=== PATIENT | male | born 1960 | race Caucasian/White ===

== ENCOUNTER 2020-07-27 05:01 | Inpatient (IN) ==
--- NOTE | 2020-07-27 04:44 | ED Telehealth Note ---
Telehealth Telehealth Telehealth Options: 1-way audio and video For the duration of the visit, provider was performing the assessment from: A different facility than the patient After establishing a telemedicine visit, patient was: Patient was verified with two unique identifiers, Patient/authorized rep acknowledged consent and understanding and Gave permission to continue telehealth session Total Time Spent (minutes): 5 Impression & Plan Diarrhea Patient advised to come in as he was quite weak with little urine output and diarrhea for a week. Note/Exam/Outcome Date of Service July 27, 2020 ED Telehealth Outcome Referred to ED for in person visit General General: + awake, + alert and + tired ENT ENT: + normal nose Eyes Eyes: + conjunctivae normal Neck Neck: + visual inspection of neck normal Respiratory Respiratory: + normal respiratory effort Neuro Neuro: + normal sensorium, + oriented x 3 and + speech normal Psych Psych: + appropriate and + normal mood Past Med/Surg History Medical History HTN (hypertension) Occipital neuralgia Surgical History S/P appendectomy Family History Father Heart disease Social History Smoking Status: Current every day smoker Tobacco Type: Cigarettes Feels Safe at Home: Yes Allergies Allergies Allergy/AdvReac Type Severity Reaction Status Date / Time tramadol AdvReac Mild RAPID HEART Verified 12/24/13 06:51 Home Meds Home Medications Medication Instructions Recorded Confirmed lisinopril-hydrochlorothiazide 1 tab PO DAILY 07/21/20 07/21/20 omeprazole 20 mg PO DAILY 07/21/20 07/21/20 Previous Rx's Medication Instructions Recorded doxycycline hyclate 100 mg PO BID 7 Days #14 cap 07/21/20 Discharge Plan Visit Data Chief Complaint: Telehealth Stated Complaint: RECTAL PAIN ED Provider: ERASMO,ED ED Midlevel Provider: Linda Paz Discharge Problem: Diarrhea Condition: Good Discharge Instructions Activity Restrictions/Additional Instructions: Patient will come to the ER for further evaluation and treatment. Forms Stand Alone Forms: [facility] Prescriptions Prescriptions: No Action omeprazole 20 mg capsule,delayed release(DR/EC) 20 mg PO DAILY RF: 0 lisinopril-hydrochlorothiazide 10-12.5 mg tablet 1 tab PO DAILY RF: 0 doxycycline hyclate 100 mg capsule 100 mg PO BID 7 Days Qty: 14 RF: 0 Referrals Referrals: Joseph Ruiz MD [Primary Care Provider] -
[2020-07-27] MEDS ORDERED: SODIUM CHLORIDE 0.9% 1000ML 2,000 ML IV ONE (05:05)
--- NOTE | 2020-07-27 05:14 | Emergency Department Note ---
History of Present Illness General Chief complaint: Rectal Pain Stated complaint: RECTAL PAIN Time Seen by Provider: 07/27/20 04:32 History of Present Illness Maximum Pain Intensity: 1 This 60-year-old presents to the ER complaining of diarrhea and weakness for the past 5 days Location: Abdomen Quality: Crampy Severity: Moderate Duration: 5 days Timing: Started the beginning the week Context: Symptoms persisted and patient came in Modifying factors: better with nothing; worse with activity patient states he was exposed to possible contaminated water. Patient states he feels quite weak. Patient denies chest pain, dyspnea, fevers, vomiting, urinary symptoms. He does state his urine is quite dark. Rare alcohol use. Home Medications Medication Instructions Recorded Confirmed Type doxycycline hyclate 100 mg PO BID 7 Days #14 cap 07/21/20 Rx lisinopril-hydrochlorothiazide 1 tab PO DAILY 07/21/20 07/21/20 History omeprazole 20 mg PO DAILY 07/21/20 07/21/20 History Allergies Allergy/AdvReac Type Severity Reaction Status Date / Time tramadol AdvReac Mild RAPID HEART Verified 12/24/13 06:51 Past Med/Surg History Medical History HTN (hypertension) Occipital neuralgia Surgical History S/P appendectomy Family History Father Heart disease Social History Smoking Status: Never smoker Tobacco Type: Cigarettes Preferred Language: Korean Feels Safe at Home: Yes Review of Systems A total of 10 systems reviewed and were otherwise negative Physical Exam Vital Signs Vital Signs - 24 hr 07/27/20 05:04 07/27/20 05:33 07/27/20 05:34 Temperature 36.3 C L Temperature Source Temporal Artery Scan Pulse Rate 68 Pulse Rate [Finger] 63 Pulse Rhythm Regular Pulse Strength Normal Respiratory Rate 20 20 Respiratory Effort / Characteristics Non-Labored Spontaneous Respiratory Depth Normal Normal Respiratory Pattern Regular Blood Pressure 146/93 H Blood Pressure [Left Arm] 159/83 H Blood Pressure Mean 110 Blood Pressure Mean [Left Arm] 108 Blood Pressure Position Sitting Pulse Oximetry 97 96 96 Oxygen Delivery Method Room Air Room Air Room Air Sepsis Recent Fever Within 48 Hours No Sepsis New/Unexplained Change in Mental Status No Sepsis Action Taken by Nursing No Action Required VITALS: Vitals are noted on the nurse's note and reviewed by myself. Vital signs stable. GENERAL: White male, in no acute distress, nondiaphoretic, well-developed well- nourished. SKIN: The skin was without rashes, erythema, edema, or bruising. There is no tenting of the skin. Capillary reflex less than 2 seconds. HEAD: Normocephalic atraumatic. EARS: External auditory canals clear, tympanic membranes pearly flaherty without erythema or effusion bilaterally. EYES: Pupils equal round and reactive to light and accommodation. Conjunctivae without injection, sclerae with icterus. Extraocular movements intact. NOSE: Patent, turbinates without inflammation or discharge. No sinus tenderness. MOUTH: Mucous membranes dry. Pharynx without erythema or exudate. Uvula midline. Airway patent. Tongue does not deviate. NECK: Supple without nuchal rigidity. No lymphadenopathy. No thyromegaly. Cervical spine is nontender. No JVD. HEART: Regular rate and rhythm LUNGS: Clear to auscultation bilaterally without wheezes, rales or rhonchi. No retractions or accessory muscle use. ABDOMEN: Positive bowel sounds x 4. Normal tympanic percussion. Soft, non tender, without masses or organomegaly. Augustin sign negative. No guarding or rebound tenderness. No CVA tenderness MUSCULOSKELETAL: No muscle atrophy, erythema, or edema noted. NEURO: Patient was alert and oriented to person place and time. Normal sensation to light and sharp touch. No focal neurological deficits. Course Administered Medications Sodium Chloride (Nss 1000ml) 2,000 mls @ 999 mls/hr IV .Q2H1M ONE Stop: 07/27/20 07:05 Last Admin: 07/27/20 05:28 Dose: 999 mls/hr Documented by: [id number] Discontinued Medications Ondansetron HCl (Ondansetron Inj 2 Mg/Ml 2 Ml Vial) 4 mg IV NOW STA Stop: 07/27/20 05:16 Last Admin: 07/27/20 05:28 Dose: 4 mg Documented by: [id number] Medical Decision Making Medical Records Attestation: I reviewed the patient's medical records. Home Medications Current Medication List: was personally reviewed by me Laboratory Data Attestation: I reviewed the patient's lab results. Result diagrams: 07/27/20 05:13 07/27/20 05:13 Lab Results 07/27/20 07/27/20 07/27/20 Range/Units 05:13 05:13 05:25 WBC 6.98 (4.8-10.8) K/uL RBC 5.02 (4.7-6.1) M/uL Hgb 15.2 (14.0-18.0) g/dL POC Hgb 16.3 (14.0-18.0) g/dl Hct 44.4 (42-52) % POC Hct 48 (42-52) % MCV 88.4 (80-100) fL MCH 30.3 (25-34) pg MCHC 34.2 (32-36) g/dL RDW Std Deviation 49.7 H (36.4-46.3) fL RDW Coeff of Shaun 15.4 H (11.5-14.5) % Plt Count 234 (130-400) K/uL MPV 9.5 (7.4-10.4) fL Immature Gran % (Auto) 0.3 % Neut % (Auto) 58.2 % Lymph % (Auto) 23.8 % [place] % (Auto) 13.5 % Eos % (Auto) 3.6 % Baso % (Auto) 0.6 % Neut # (Auto) 4.07 (1.4-6.5) K/uL Lymph # (Auto) 1.66 (1.2-3.4) K/uL [place] # (Auto) 0.94 H (0.11-0.59) K/uL Eos # (Auto) 0.25 (0-0.5) K/uL Baso # (Auto) 0.04 (0-0.2) K/uL Immature Gran # (Auto) 0.02 (0.00-0.02) K/uL POC Sodium 141 (135-144) mmol/L Sodium 135 L (136-145) mmol/L POC Potassium 4.1 (3.3-5.0) mmol/L Potassium 4.3 (3.5-5.1) mmol/L POC Chloride 105 (101-112) mmol/L Chloride 105 (98-107) mmol/L Carbon Dioxide 23 (21-32) mmol/L POC Total CO2 20 L (24-31) mmol/L Anion Gap 7.0 (3-11) POC Anion Gap 21.0 (16-25) mmol/L POC BUN 13 (7-18) mg/dl BUN 13 (7-18) mg/dl Creatinine 0.83 (0.6-1.4) mg/dl POC Creatinine 0.8 (0.6-1.3) mg/dl Est Cr Clr Drug Dosing 105.0 ml/min Est GFR ( Amer) 110.8 ml/min Est GFR (Non-Af Amer) 95.6 ml/min BUN/Creatinine Ratio 15.6 (10-20) Glucose 111 H (70-99) mg/dl POC Glucose (other) 113 H (70-99) mg/dl Calcium 9.0 (8.5-10.1) mg/dl POC Ioniz Calcium Yair 1.22 (1.12-1.32) mmol/l Magnesium 1.8 (1.8-2.4) mg/dl Total Bilirubin 7.7 H (0.2-1) mg/dl AST 96 H (15-37) U/L ALT 194 H (12-78) U/L Alkaline Phosphatase 282 H (45-117) U/L Total Protein 7.8 (6.4-8.2) gm/dl Albumin 3.5 (3.4-5.0) gm/dl Globulin 4.3 H (2.5-4.0) gm/dl Albumin/Globulin Ratio 0.8 L (0.9-2) Imaging Data Attestation: I personally reviewed and interpreted this imaging study as follows: MDM Narrative Prior records/ancillary studies reviewed and summarized above. Nursing notes reviewed. Additional history obtained from nursing. The patient's history was concerning for diarrhea and weakness. Differential diagnosis: Etiologies such as metabolic, infection, hypo/hyperglycemia, electrolyte abnormalities, cardiac sources, intracerebral event, toxicologic, neurologic, as well as others were entertained. Physical examination: As above. ER treatment provided: IV Lock An order was placed for continuous cardiac monitoring. The monitor shows a rate of 60-1 10 with a sinus rhythm. IV fluids On reassessment the patient felt better. Diagnostics interpretation by me: ECG: Ordered for weakness EKG: Normal sinus, normal intervals, no acute ST-T wave changes. Impression normal sinus rhythm interpreted myself I think arrhythmia is unlikely. EKG shows normal sinus rhythm with no interval abnormalities such as QT prolongation or WPW. There are no findings to suggest Brugada syndrome. Cardiac monitoring in the emergency department reveals no tachycardic or bradycardic dysrhythmia. Hypertrophic cardiomyopathy was considered but there are no clear historical elements pointing toward this. EKG is not suggestive. The QRS voltage is not extremely large and there are no suggestive Q waves. The labs revealed stable H&H, stool cultures pending Elevated LFTs, T bili Stool cultures pending Imaging studies: Chest x-ray with no acute consolidation, pneumothorax or free air per my interpretation Consultation: A consultation was placed with the hospitalist. The case was discussed and diagnostics were reviewed. The patient was evaluated in the ER for further treatment. Exam and history seem consistent with diarrhea with weakness with elevated LFTs T bili who is jaundiced. Patient given IV fluids. Medicine was consulted. He will be evaluated for admission. Patient had no abdominal pain. He was afebrile nontoxic. By the evaluation outlined above emergent etiologies such as cardiac sources, intracerebral event, toxologic, neurologic, abnormalities blood glucose, metabolic, as well as others were deemed relatively unlikely. The pt informed about the findings as listed above. All questions were answered and pleased with the treatment. The chart was completed utilizing [employer] Speech voice recognition software. Grammatical errors, random word insertions, pronoun errors, and incomplete sentences are an occassional consequence of this system due to software limitations, ambient noise, and hardware issues. Any formal questions or concerns about the content, text, or information contained within the body of this dictation should be directly addressed to the physician corporate law assistant for clarification. Impression & Plan Diarrhea, Elevated bilirubin, Elevated liver function tests Discharge Plan Visit Data Chief Complaint: Rectal Pain Stated Complaint: RECTAL PAIN ED Provider: Alina Stovall ED Midlevel Provider: Linad Paz Discharge Problem: Diarrhea, Elevated bilirubin, Elevated liver function tests Patient Disposition: Admitted As Inpatient Condition: Good Discharge Instructions Activity Restrictions/Additional Instructions: Forms Stand Alone Forms: Work/School Release (ED), [facility] Prescriptions Prescriptions: No Action omeprazole 20 mg capsule,delayed release(DR/EC) 20 mg PO DAILY RF: 0 lisinopril-hydrochlorothiazide 10-12.5 mg tablet 1 tab PO DAILY RF: 0 doxycycline hyclate 100 mg capsule 100 mg PO BID 7 Days Qty: 14 RF: 0 Referrals Referrals: Joseph Ruiz MD [Primary Care Provider] - Discharge Problem: Diarrhea Qualifiers: Diarrhea type: unspecified type Qualified Code(s): R19.7 - Diarrhea, unspecified
[2020-07-27] MEDS ORDERED: ONDANSETRON INJ 2 MG/ML 2 ML VIAL IV STA (05:15)
[2020-07-27 05:26] LABS: Basophils # (auto) 0.04 K/uL (0-0.2); Basophils % (auto) 0.6 %; Eosinophils # (auto) 0.25 K/uL (0-0.5); Eosinophils % (auto) 3.6 %; Hematocrit (blood only) 44.4 % (42-52); Hemoglobin 15.2 g/dL (14.0-18.0); Immature Granulocytes # (auto) 0.02 K/uL (0.00-0.02); Immature Granulocytes % (auto) 0.3 %; Lymphocytes # (auto) 1.66 K/uL (1.2-3.4); Lymphocytes % (auto) 23.8 %; Mean Corpuscular Hemoglobin 30.3 pg (25-34); Mean Corpuscular Hgb Conc 34.2 g/dL (32-36); Mean Corpuscular Volume 88.4 fL (80-100); Mean Platelet Volume 9.5 fL (7.4-10.4); Monocytes # (auto) 0.94 K/uL (0.11-0.59); Monocytes % (auto) 13.5 %; Neutrophils # (auto) 4.07 K/uL (1.4-6.5); Neutrophils % (auto) 58.2 %; Platelet Count 234 K/uL (130-400); RDW Coefficient of Variation 15.4 % (11.5-14.5); RDW Standard Deviation 49.7 fL (36.4-46.3); Red Blood Count 5.02 M/uL (4.7-6.1); White Blood Count 6.98 K/uL (4.8-10.8)
[2020-07-27 05:38] LABS: iSTAT Creatinine 0.8 mg/dl (0.6-1.3); iSTAT Hemoglobin 16.3 g/dl (14.0-18.0); iSTAT Ionized Calcium 1.22 mmol/l (1.12-1.32); iSTAT Potassium 4.1 mmol/L (3.3-5.0)
[2020-07-27 06:04] LABS: Albumin Globulin Ratio 0.8 (0.9-2); Albumin Level 3.5 gm/dl (3.4-5.0); BUN Creatinine Ratio 15.6 (10-20); Bilirubin,Total 7.7 mg/dl (0.2-1); Est GFR (African American) 110.8 ml/min; Est GFR (Non-African American) 95.6 ml/min; Globulin 4.3 gm/dl (2.5-4.0); Magnesium 1.8 mg/dl (1.8-2.4); Potassium 4.3 mmol/L (3.5-5.1); Total Protein 7.8 gm/dl (6.4-8.2)
[2020-07-27 06:11] LABS: Appearance Urine Clear (Clear); Bacteria Urine Automated Negative (Negative); Bilirubin Urine 3+ (Negative); Blood Urine Negative (Negative); Cast Urine Automated 0 /lpf (0-5); Color Urine Dark Yellow; Epithelial Cell Urine Auto 0-5 /lpf (0-5); Glucose Urine UA Negative (Negative); Ketones Urine Negative (Negative); Leukocyte Esterase Urine Trace (Negative); Nitrite Urine Positive (Negative); Protein Urine Negative (Negative); RBC Urine Automated 0-4 /hpf (0-4); Specific Gravity Urine 1.017 (1.000-1.030); Urobilinogen Urine Negative (Negative); WBC Urine Automated 0 /hpf (0-5)
[2020-07-27] MEDS ORDERED: CEFEPIME 2,000 MG/20 ML VIAL IV STA (06:47)
--- NOTE | 2020-07-27 06:50 | History & Physical Report ---
Date of Service July 27, 2020 Assessment & Plan (1) Abdominal pain: Secondary to complicated UTI No sepsis for now Multifactorial hepatitis (EtOH induced, recent antibiotic Rx contributory) Rule out C. difficile colitis given diarrhea symptoms, history antibiotic Rx Rule out recurrent pancreatitis hypertension, slightly elevated secondary discomfort Incipient alcohol withdrawal prediabetes, hemoglobin A1c of 6 last year ongoing alcohol/tobacco abuse Medical telemetry given potential for alcohol withdrawal CS, Cefepime Stool C. difficile CT abdomen pelvis Follow LFTs, GI consult if with progression Further management pending work-up results DIANA S/DT precautions Update hemoglobin A1c Nicotine gum as needed DVT prophylaxis per Lovenox subcu Full code Text document was generated using [employer] voice recognition software. It may contain grammatical or spelling errors. Kindly contact undersigned for clarification of any documentation item in question. History of Present Illness Chief Complaint: Abdominal pain, dysuria, diarrhea Primary Care Provider: Joseph Ruiz MD History obtained from patient and records. Medical history significant for hypertension, prediabetes, history of pancreatitis as per records, ongoing alcohol/tobacco abuse. 2 weeks ago, patient complained to PCP of sinus infection. Symptoms improved after Augmentin course. Last week, patient noted chest pain with fever and headache. No no cough symptoms. Patient seen at the ER. No pulmonary embolism on CT chest. No LFTs/abdominal imaging done. Patient prescribed doxycycline for possible bronchitis. Patient felt worse 1 day after taking doxycycline. Achy abdominal pain with dark urine. Last alcohol intake at this time secondary to illness as per patient. Lyme screen requested by PCP was negative. Achy abdominal pain later followed by watery diarrhea and rectal pain. Fever, chills, dysuria symptoms. Consumption of maximum of 4 tabs of Tylenol 500 mg daily as per patient. Patient denies chest pain, S OB. Patient stopped Doxycycline. Patient consulted ER for worsening symptoms. Medical History as above Surgical History : Appendectomy Family History : Breast cancer, heart disease, hypertension Personal/Social history : 2 cigarettes a day, alcohol intake not daily but can be heavy from time to time, scheduling work for local [employer] Allergies Allergy/AdvReac Type Severity Reaction Status Date / Time tramadol AdvReac Mild RAPID HEART Verified 12/24/13 06:51 Home Medications Medication Instructions Recorded Confirmed Type doxycycline hyclate 100 mg PO BID 7 Days #14 cap 07/21/20 Rx lisinopril-hydrochlorothiazide 1 tab PO DAILY 07/21/20 07/21/20 History omeprazole 20 mg PO DAILY 07/21/20 07/21/20 History betamethasone dipropionate 1 applic TOPICAL BID PRN 07/27/20 07/27/20 History hydrocodone-acetaminophen 1.5 tab PO DAILY PRN 07/27/20 07/27/20 History Past Med/Surg History Medical History HTN (hypertension) Occipital neuralgia Surgical History S/P appendectomy Family History Father Heart disease Social History Smoking Status: Never smoker Tobacco Type: Cigarettes Preferred Language: Telugu Feels Safe at Home: Yes Review of Systems Review of Systems: As per HPI, all 10 systems reviewed, all other ROS negative Physical Exam Physical Exam: GENERAL: Comfortable, pleasant, obese, no respiratory distress SKIN: Normal color, warm HEENT: [place] palpebral conjunctivae, no ptosis, dry buccal mucosa NECK : Supple, short neck, no tenderness CHEST : CTA, no tenderness HEART : RRR, no obvious murmurs ABDOMEN: Some distention, hypogastric tenderness EXTREMITIES : No LE swelling/tenderness, no other conspicuous deformities noted NEUROLOGIC : Coherent, no facial asymmetry, no other gross focality Results & Data Results & Data ([facility]) Vital Signs (Past 12 Hours) Vital Signs Temp Pulse Pulse Resp BP BP Pulse Ox 07/27/20 06:00 60 18 150/90 H 98 07/27/20 05:34 63 20 159/83 H 96 07/27/20 05:33 96 07/27/20 05:04 36.3 C L 68 20 146/93 H 97 Laboratory Results Laboratory Results WBC 6.98 K/uL (4.8-10.8) 07/27/20 05:13 RBC 5.02 M/uL (4.7-6.1) 07/27/20 05:13 Hgb 15.2 g/dL (14.0-18.0) 07/27/20 05:13 POC Hgb 16.3 g/dl (14.0-18.0) 07/27/20 05:25 Hct 44.4 % (42-52) 07/27/20 05:13 POC Hct 48 % (42-52) 07/27/20 05:25 MCV 88.4 fL (80-100) 07/27/20 05:13 MCH 30.3 pg (25-34) 07/27/20 05:13 MCHC 34.2 g/dL (32-36) 07/27/20 05:13 RDW Std Deviation 49.7 fL (36.4-46.3) H 07/27/20 05:13 RDW Coeff of Shaun 15.4 % (11.5-14.5) H 07/27/20 05:13 Plt Count 234 K/uL (130-400) 07/27/20 05:13 MPV 9.5 fL (7.4-10.4) 07/27/20 05:13 Immature Gran % (Auto) 0.3 % 07/27/20 05:13 Neut % (Auto) 58.2 % 07/27/20 05:13 Lymph % (Auto) 23.8 % 07/27/20 05:13 [place] % (Auto) 13.5 % 07/27/20 05:13 Eos % (Auto) 3.6 % 07/27/20 05:13 Baso % (Auto) 0.6 % 07/27/20 05:13 Neut # (Auto) 4.07 K/uL (1.4-6.5) 07/27/20 05:13 Lymph # (Auto) 1.66 K/uL (1.2-3.4) 07/27/20 05:13 [place] # (Auto) 0.94 K/uL (0.11-0.59) H 07/27/20 05:13 Eos # (Auto) 0.25 K/uL (0-0.5) 07/27/20 05:13 Baso # (Auto) 0.04 K/uL (0-0.2) 07/27/20 05:13 Immature Gran # (Auto) 0.02 K/uL (0.00-0.02) 07/27/20 05:13 POC Sodium 141 mmol/L (135-144) 07/27/20 05:25 Sodium 135 mmol/L (136-145) L 07/27/20 05:13 POC Potassium 4.1 mmol/L (3.3-5.0) 07/27/20 05:25 Potassium 4.3 mmol/L (3.5-5.1) 07/27/20 05:13 POC Chloride 105 mmol/L (101-112) 07/27/20 05:25 Chloride 105 mmol/L (98-107) 07/27/20 05:13 Carbon Dioxide 23 mmol/L (21-32) 07/27/20 05:13 POC Total CO2 20 mmol/L (24-31) L 07/27/20 05:25 Anion Gap 7.0 (3-11) 07/27/20 05:13 POC Anion Gap 21.0 mmol/L (16-25) 07/27/20 05:25 POC BUN 13 mg/dl (7-18) 07/27/20 05:25 BUN 13 mg/dl (7-18) 07/27/20 05:13 Creatinine 0.83 mg/dl (0.6-1.4) 07/27/20 05:13 POC Creatinine 0.8 mg/dl (0.6-1.3) 07/27/20 05:25 Est Cr Clr Drug Dosing 105.0 ml/min 07/27/20 05:13 Est GFR ( Amer) 110.8 ml/min 07/27/20 05:13 Est GFR (Non-Af Amer) 95.6 ml/min 07/27/20 05:13 BUN/Creatinine Ratio 15.6 (10-20) 07/27/20 05:13 Glucose 111 mg/dl (70-99) H 07/27/20 05:13 POC Glucose (other) 113 mg/dl (70-99) H 07/27/20 05:25 Calcium 9.0 mg/dl (8.5-10.1) 07/27/20 05:13 POC Ioniz Calcium Yair 1.22 mmol/l (1.12-1.32) 07/27/20 05:25 Magnesium 1.8 mg/dl (1.8-2.4) 07/27/20 05:13 Total Bilirubin 7.7 mg/dl (0.2-1) H 07/27/20 05:13 AST 96 U/L (15-37) H 07/27/20 05:13 ALT 194 U/L (12-78) H 07/27/20 05:13 Alkaline Phosphatase 282 U/L (45-117) H 07/27/20 05:13 Total Protein 7.8 gm/dl (6.4-8.2) 07/27/20 05:13 Albumin 3.5 gm/dl (3.4-5.0) 07/27/20 05:13 Globulin 4.3 gm/dl (2.5-4.0) H 07/27/20 05:13 Albumin/Globulin Ratio 0.8 (0.9-2) L 07/27/20 05:13 Urine Color Dark Yellow 07/27/20 05:30 Urine Appearance Clear (Clear) 07/27/20 05:30 Urine pH 5.0 (4.5-7.5) 07/27/20 05:30 Ur Specific [place] 1.017 (1.000-1.030) 07/27/20 05:30 Urine Protein Negative (Negative) 07/27/20 05:30 Urine Glucose (UA) Negative (Negative) 07/27/20 05:30 Urine Ketones Negative (Negative) 07/27/20 05:30 Urine Blood Negative (Negative) 07/27/20 05:30 Urine Nitrite Positive (Negative) A 07/27/20 05:30 Urine Bilirubin 3+ (Negative) H 07/27/20 05:30 Urine Urobilinogen Negative (Negative) 07/27/20 05:30 Ur Leukocyte Esterase Trace (Negative) H 07/27/20 05:30 Urine WBC (Auto) 0 /hpf (0-5) 07/27/20 05:30 Urine RBC (Auto) 0-4 /hpf (0-4) 07/27/20 05:30 U Hyaline Cast (Auto) 0 /lpf (0-5) 07/27/20 05:30 U Epithel Cells (Auto) 0-5 /lpf (0-5) 07/27/20 05:30 Urine Bacteria (Auto) Negative (Negative) 07/27/20 05:30 Stl C. diff Tox B Gene Negative Cdiff Gene (Neg) 07/27/20 05:30 COVID-19 Eval Order Covid19 at [facility] 07/27/20 06:00 Diagnostic Findings Chest x-ray as per my interpretation atelectasis, cardiomegaly EKG as per my interpretation : Rate 65, NSR, normal axis, no ischemia
[2020-07-27] MEDS ORDERED: MULTI-VITAMIN INFUSION 10 ML, THIAMINE HCL 100 MG, FOLIC ACID 1 MG in SODIUM CHLORIDE 0... IV ONE (06:52)
[2020-07-27] MEDS ORDERED: OPTIRAY 320 100ml IV ONE (07:11)
[2020-07-27] MEDS ORDERED: lisinopril 20 MG TAB PO STA (07:31)
[2020-07-27 07:48] LABS: Estimated Average Glucose 117 mg/dl; Hemoglobin A1C 5.7 % (4.5-5.6)
[2020-07-27 07:56] LABS: INR 1.1 (0.9-1.1); Prothrombin Time 10.8 Seconds (9.0-12.0)
[2020-07-27 08:36] LABS: Lyme Ab IgG w/WB Rflx Negative (Negative); Lyme Ab IgM w/WB Rflx Negative (Negative)
[2020-07-27] MEDS ORDERED: LORazepam 2 MG/4 ML VIAL IV PRN (09:35)
[2020-07-27] MEDS ORDERED: PROMETHAZINE HCL 12.5 MG in SODIUM CHLORIDE 0.9% 50 ML IV PRN (09:35)
[2020-07-27] MEDS ORDERED: CEFEPIME CONSULT ACTIVE PRN (09:35)
[2020-07-27] MEDS ORDERED: LORazepam 3 MG/6 ML VIAL IV PRN (09:35)
[2020-07-27] MEDS ORDERED: LORazepam 1 MG/2 ML VIAL IV PRN (09:35)
[2020-07-27] MEDS ORDERED: oxyCODONE HCL IR 5 MG TAB (IMMEDIATE RELEASE) PO PRN (09:35)
[2020-07-27] MEDS ORDERED: ATIVAN IV ALCOHOL WITHDRAWL IV PRN (09:35)
[2020-07-27] MEDS ORDERED: ACETAMINOPHEN 325 MG TAB PO PRN (09:35)
[2020-07-27] MEDS ORDERED: MoRPHine SULFATE 4 MG/ML 1 ML CARP\\VIAL IV PRN (09:35)
--- NOTE | 2020-07-27 09:39 | CT Scan Report ---
CT abd pelvis IV con only CLINICAL HISTORY: abd pain COMPARISON STUDY: December 19, 2008 TECHNIQUE: A dose lowering technique was utilized adhering to the principles of ALARA. CT DOSE: 780.57 mGy.cm FINDINGS: Lower chest: Minimal atelectasis is seen at dependent portions of bilateral lower lobes. No large inf iltrates or consolidative lesions are seen.. Liver: The contrast-enhanced liver is normal in size, contour, and attenuation. There is no intrahepa tic biliary ductal dilatation. The hepatic veins and portal veins are patent. Gallbladder: Is contracted with calcifications within its distal aspect. No definite inflammatory mathew nges seen within gallbladder fossa. Spleen: Normal in size and attenuation. Pancreas: Unremarkable. Adrenal glands: Unremarkable. Kidneys: There is symmetric renal cortical enhancement. The kidneys are normal in size without hydron ephrosis.Interval enlargement of previously seen cyst within superior aspect of the left kidney now m easuring 4.3 cm on axial image. Pelvic viscera: The bladder, and pelvic viscera are unremarkable. Bowel: The small bowel and colon are normal in course and caliber. Appendix is not well seen. No infl ammatory changes are seen within right lower quadrant. Peritoneum: There is no intraperitoneal free air or abdominal ascites. There is mild fat stranding wi thin left hemiabdomen surrounding mesenteric root which might represent minimal panniculitis. Adenopathy:: Few small lymph nodes are seen in the retroperitoneal region, measuring less than 1 cm i n size and considered nonpathological by CT size criteria. No significant mesenteric lymphadenopathy seen. Slightly prominent lymph node measuring 1.2 cm in short axis is seen anteriorly to the inferior vena cava at the region of the pancreatic head, findings are not significantly changed since prior s tudy in 2008 Vasculature: Abdominal aorta is normal in caliber with scattered calcifications of its wall Skeletal structures: Multilevel degenerative changes of the spine. Grade 1 anterolisthesis of L5 on S 1 is seen associated with intervertebral disc space narrowing and subchondral sclerosis. Also spondyl olysis is seen at this level. Mild anterolisthesis of L4 on L5. IMPRESSION: 1. Mild fat stranding of the mesentery might represent panniculitis. 2. Cholelithiasis and contracted gallbladder, above-mentioned findings might be seen in chronic chol ecystitis. Please correlate with prior history. 3. Degenerative changes of the spine and grade 1 anterolisthesis of L5 on S1 associated with spondyl olysis. 4. Interval enlargement of left renal cyst. 5. Additional findings as above. ACT 112: Positive. There are findings on this exam that require communication between the performing entity and the patient following Patient Test Result Information Act ([place] Act 112) guidelines. The above report was generated using voice recognition software. It may contain grammatical, syntax o r spelling errors. Electronically signed by: Shoshana Mendez DO 07/27/2020 9:38 AM
--- NOTE | 2020-07-27 11:03 | Electrocardiogram Report ---
Test Reason : Blood Pressure : / mmHG Vent. Rate : 063 BPM Atrial Rate : 063 BPM P-R Int : 148 ms QRS Dur : 084 ms QT Int : 404 ms P-R-T Axes : 032 027 011 degrees QTc Int : 413 ms Normal sinus rhythm Normal ECG When compared with ECG of 21-JUL-2020 19:45, No significant change was found Confirmed by Fredy Lemons ([id number]) on 07/27/2020 11:03:27 AM Referred By: REFERRED SELF Confirmed By:Nigel Lemons
[2020-07-27] MEDS: PANTOprazole 40 MG TAB PO SCH (11:19)
[2020-07-27] MEDS: ENOXAPARIN INJ 40 MG/0.4 ML SYR SQ SCH (11:19)
--- NOTE | 2020-07-27 12:06 | Communication Note ---
Date of Service: July 27, 2020 Overall patient reports he is doing okay. Currently having clear liquid diet. Has been having diarrhea for the past week or so since he has been on doxycyc line. Report he has been having roughly 15 bowel movements per day. Denies any melena or bright red blood per rectum. C. difficile is negative. Stool panel is pending. Urine cultures were obtained in the ED. CT abdomen/pelvis without any acute findings. Continue with maintenance IV fluids for now. Remains on cefepime? Possible UTI? Patient denies any urinary symptoms. General: A&Ox3 HENT: NCAT, MMM, EOMI Eyes: PERRLA Neck: Supple, normal range of motion CVS: normal rate and rhythm Resp: b/l good breath sounds Abdomen: Soft, distended and nontender. Extremities: No c/c/e Neuro: face symmetric, strength grossly equal, no focal deficit Skin: warm and dry, no rashes/lesions/errythema MSK: normal ROM, no joint swelling/erythema
--- NOTE | 2020-07-27 12:26 | XRay Report ---
XR chest 1V portable CLINICAL HISTORY: weakness COMPARISON STUDY: Chest radiograph and chest CT July 21, 2020. FINDINGS: Lung volumes are normal. Lungs are clear. There is no pneumothorax or pleural effusion. Car diac size is stable. Mediastinal contours are normal. There is no evidence for pulmonary edema. IMPRESSION: No acute cardiopulmonary findings. ACT 112: Negative or not required by law. Electronically signed by: Mook Henderson M.D. 07/27/2020 12:24 PM
[2020-07-27] MEDS: CEFEPIME 2,000 MG in SYRINGE 0 ML IV SCH (18:17)
[2020-07-28] MEDS ORDERED: diphenhydrAMINE Capsule 25 MG CAP PO ONE (01:16)
[2020-07-28 05:52] LABS: Basophils # (auto) 0.04 K/uL (0-0.2); Basophils % (auto) 0.6 %; Eosinophils % (auto) 4.7 %; Hematocrit (blood only) 39.4 % (42-52); Hemoglobin 13.1 g/dL (14.0-18.0); Immature Granulocytes # (auto) 0.03 K/uL (0.00-0.02); Immature Granulocytes % (auto) 0.5 %; Lymphocytes # (auto) 1.51 K/uL (1.2-3.4); Lymphocytes % (auto) 23.9 %; Mean Corpuscular Hemoglobin 29.8 pg (25-34); Mean Corpuscular Hgb Conc 33.2 g/dL (32-36); Mean Corpuscular Volume 89.5 fL (80-100); Mean Platelet Volume 9.8 fL (7.4-10.4); Monocytes # (auto) 0.63 K/uL (0.11-0.59); Neutrophils # (auto) 3.82 K/uL (1.4-6.5); Neutrophils % (auto) 60.3 %; Platelet Count 226 K/uL (130-400); RDW Coefficient of Variation 15.6 % (11.5-14.5); RDW Standard Deviation 51.1 fL (36.4-46.3); White Blood Count 6.33 K/uL (4.8-10.8)
[2020-07-28] MEDS: CEFEPIME 2,000 MG in SYRINGE 0 ML IV SCH ×2 (06:10→18:26)
[2020-07-28 06:26] LABS: Albumin Globulin Ratio 0.9 (0.9-2); Albumin Level 2.9 gm/dl (3.4-5.0); BUN Creatinine Ratio 8.3 (10-20); Bilirubin,Total 10.1 mg/dl (0.2-1); Calcium 8.7 mg/dl (8.5-10.1); Creatinine Clr Calc Pharmacy 92.7 ml/min; Est GFR (African American) 95.5 ml/min; Est GFR (Non-African American) 82.4 ml/min; Globulin 3.4 gm/dl (2.5-4.0); Potassium 3.8 mmol/L (3.5-5.1); Total Protein 6.3 gm/dl (6.4-8.2)
[2020-07-28] MEDS: ENOXAPARIN INJ 40 MG/0.4 ML SYR SQ SCH (08:30)
[2020-07-28] MEDS: PANTOprazole 40 MG TAB PO SCH (08:31)
[2020-07-28] MEDS: FOLIC ACID 1 MG TAB PO SCH (08:31)
[2020-07-28] MEDS: lisinopril 10 MG TAB PO SCH (08:31)
[2020-07-28] MEDS: THIAMINE HCL 100 MG TAB PO SCH (08:31)
[2020-07-28] MEDS: MULTIVITAMIN TAB PO SCH (08:31)
--- NOTE | 2020-07-28 18:56 | Hospitalist Progress Note ---
Date of Service July 28, 2020 Assessment & Plan (1) Diarrhea: Present on admission with recurrent episode of diarrhea Possible related to antibiotic doxycycline CT abd/pelvis mild fat stranding of the mesentery might represent panniculitis.Cholelithiasis and contracted gallbladder, above-mentioned findings might be seen in chronic cholecystitis. Stool for Cdiff and parasite are negative Elevated liver enzyme that trending down Diarrhea improved significantly Diet advance as tolerated Transaminitis Elevated Liver enzymes trending down with AST 84, ALT 154 and Alk 263 Lyme titer negative Will repeat Liver enzymes Abnormal UA Urine cx no growth Asymptomatic Will discontinue IV abx Tobacco abuse Counseling on smoking cessation Alcohol abuse Counseling on alcohol cessation Will monitor closely for alcohol cessation DVT px on Lovenox Code status Ful code Admission and Anticipated Discharge Date Admission Date: July 27, 2020 Subjective Patient was seen and examined for follow-up of diarrhea and Liver enzymes Lying in bed no distress with girlfriend at bedside Patient said that he feels much better He said that he is not having any diarrhea at this moment. He said his last bowel movement was last night Denies any chest pain, palpitation, dizziness, shortness of breath. Review of Systems Review of Systems: All systems reviewed & are unremarkable except as noted in Subjective Physical Exam Physical Exam: General- No acute distress Head- atraumatic Eyes- PERRL, EOMI, ENT- oropharynx clear Neck- supple, no JVD Lungs- clear to auscultation Heart- regular rhythm; no murmur Abdomen- normal bowel sounds, soft, nontender Extremities- no calf tenderness Neuro- alert, oriented x 3; PERRL, EOMI; no facial palsy; no dysarthria Skin- warm & dry Results & Data Results & Data ([facility]) Vital Signs (Past 12 Hours) Vital Signs Temp Pulse Pulse Pulse Resp BP BP 07/28/20 16:00 36.8 C 65 18 148/81 H 07/28/20 12:00 36.8 C 60 18 119/59 L 07/28/20 09:00 59 L 07/28/20 07:30 36.7 C 59 L 18 142/77 H Pulse Ox 07/28/20 16:00 97 07/28/20 12:00 98 07/28/20 09:00 07/28/20 07:30 96 (1) Diarrhea Diarrhea type: unspecified type Qualified Code(s): R19.7 - Diarrhea, unspecified
[2020-07-28] MEDS: ACETAMINOPHEN 325 MG TAB PO PRN (19:42)
[2020-07-28] MEDS: ZOLPIDEM TARTRATE 5 MG TAB PO PRN (21:11)
[2020-07-28] MEDS ORDERED: LORATADINE 10 MG TAB PO ONE (23:31)
[2020-07-29 06:59] LABS: Hematocrit (blood only) 39.6 % (42-52); Hemoglobin 13.6 g/dL (14.0-18.0); Mean Corpuscular Hemoglobin 30.5 pg (25-34); Mean Corpuscular Hgb Conc 34.3 g/dL (32-36); Mean Corpuscular Volume 88.8 fL (80-100); Mean Platelet Volume 9.9 fL (7.4-10.4); Platelet Count 265 K/uL (130-400); RDW Coefficient of Variation 15.7 % (11.5-14.5); RDW Standard Deviation 50.8 fL (36.4-46.3); Red Blood Count 4.46 M/uL (4.7-6.1); White Blood Count 6.75 K/uL (4.8-10.8)
[2020-07-29 07:32] LABS: Albumin Globulin Ratio 0.7 (0.9-2); Albumin Level 2.9 gm/dl (3.4-5.0); BUN Creatinine Ratio 13.2 (10-20); Bilirubin,Total 12.3 mg/dl (0.2-1); Creatinine Clr Calc Pharmacy 98.1 ml/min; Est GFR (African American) 104.4 ml/min; Est GFR (Non-African American) 90.1 ml/min; Globulin 3.9 gm/dl (2.5-4.0); Potassium 3.7 mmol/L (3.5-5.1); Total Protein 6.8 gm/dl (6.4-8.2)
[2020-07-29] MEDS: THIAMINE HCL 100 MG TAB PO SCH (08:00)
[2020-07-29] MEDS: lisinopril 10 MG TAB PO SCH (08:00)
[2020-07-29] MEDS: FOLIC ACID 1 MG TAB PO SCH (08:00)
[2020-07-29] MEDS: PANTOprazole 40 MG TAB PO SCH (08:01)
[2020-07-29] MEDS: ENOXAPARIN INJ 40 MG/0.4 ML SYR SQ SCH (08:01)
[2020-07-29] MEDS: MULTIVITAMIN TAB PO SCH (08:01)
[2020-07-29 10:54] LABS: INR 1.1 (0.9-1.1); Prothrombin Time 10.8 Seconds (9.0-12.0)
--- NOTE | 2020-07-29 11:32 | Gastrointestinal Consultation ---
Date of Consultation July 29, 2020 Assessment & Plan (1) Abdominal pain: 60 year old male admitted w/ diarrhea/weakness noted to have transaminitis. DDX discussed: DILI vs obstructive process vs other Arrange MRCP After, no contraindication to diet Add Augmentin to allergy list for now concern for DILI Trend LFTs Diarrhea resolve but if returns consider questran daily given negative stool testing Trend LFTs Supervising Physician Co-Signing Physician Notes Attg add: I interviewed and examined pt, reviewed chart and labs. Pt s/p recent course of Augmentin now with cholestasis. CT with gstones but no choledo cholithiasis. Plan to follow labs - if cont rise, pursue serologic w/u for AIH, etc; empiric NAC; and consider EUS/liver bx. History of Present Illness Reason for Consultation: elevated LFTs Requesting Physician: Elena Attending Physician: Juan Manuel Parker MD History of Present Illness 60 year old male admitted w/ weakness, diarrhea and elevated LFTS - GI asked to evaluate for elevated LFTs. Notes he was in his typical state of health. Started PO Augmentin 10 days for URI. He notes he finished this course and after he developed vague symptoms, fatigue, dark urine and loose stools. Suggests he had been in and out of appointments and was later started on doxycycline with concern for lyme. He had worsening diarrhea which initially prompted ED evlauation. It was noted he had elevated transaminases and he was kep for observation. Clinically, feeling well. No abd pain. No nausea, vomiting. No GERD. He has had improvement of his bowels in the last 48 hours and notes resolution of loose stools. No black or bloody stools. TB uptrending to 12.3 AST stable 85 ALT stable 151 ALKP uptrending 299 + ETOH 1 bottle of wine 10 days ago + Tylenol 4 tabs daily x 2 weeks + Augmentin use 10 day course, finished 10 days ago CTAP 2020: Mild fat stranding of the mesentery might represent panniculitis. 2. Cholelithiasis and contracted gallbladder, above-mentioned findings might be seen in chronic cholecystitis. Please correlate with prior history. 3. 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 4. Interval enlargement of left renal cyst. 5. Additional findings as above. Allergies Allergy/AdvReac Type Severity Reaction Status Date / Time tramadol AdvReac Mild RAPID HEART Verified 12/24/13 06:51 Home Medications Medication Instructions Recorded Confirmed Type doxycycline hyclate 100 mg PO BID 7 Days #14 cap 07/21/20 07/27/20 Rx lisinopril-hydrochlorothiazide 0.5 tab PO DAILY 07/21/20 07/27/20 History omeprazole 20 mg PO DAILY 07/21/20 07/27/20 History betamethasone dipropionate 1 applic TOPICAL BID PRN 07/27/20 07/27/20 History hydrocodone-acetaminophen 1.5 tab PO DAILY PRN 07/27/20 07/27/20 History Patient History Medical History HTN (hypertension) Occipital neuralgia Surgical History S/P appendectomy Family History Father Heart disease Social History Smoking Status: Former smoker Tobacco Type: Cigarettes Cigarettes Per Day: pack; Second Hand Exposure: No; Do You Dip or Chew Tobacco: No; Tobacco Cessation Education Requested by Patient: No Hx Alcohol Use: Yes Alcohol type: beer Hx Substance Use: No Preferred Language: Armenian Communication Ability: Effective Sr. Operations Manager Required: No Beliefs That Will Affect Care: None marital status: Life Partner Current Living Situation: Family and Significant Other Other Information That Helps Us Care for You: No Feels Safe at Home: Yes Safety Concerns: Feels Safe At This Time Assistive Devices: None Review of Systems Review of Systems: All systems reviewed & are unremarkable except as noted in HPI & below Physical Exam Constitutional: WD/WN, vitals as above well developed and well nourished; no acute distress Eyes: PERRL +icterus Neck: trachea midline, no thyromegaly no tracheal deviation and no neck crepitus Respiratory: normal respiratory effort, lungs clear to auscultation Cardiovascular: RRR, no murmur, no edema Gastrointestinal (Abdomen): normal bowel sounds, soft, nontender, no hepatosplenomegaly Skin: no rashes, warm and dry + jaundice Results & Data ([facility]) Vital Signs (Past 12 Hours) Vital Signs Temp Pulse Pulse Pulse Resp BP Pulse Ox 07/29/20 11:02 36.7 C 62 18 150/90 H 94 07/29/20 07:44 59 L 07/29/20 06:57 36.7 C 63 18 138/84 95 07/29/20 03:16 36.6 C 58 L 16 105/63 96 07/29/20 00:56 60 Laboratory Results 07/29/20 07/29/20 07/29/20 Range/Units 10:33 06:11 06:11 WBC (4.8-10.8) K/uL RBC (4.7-6.1) M/uL Hgb (14.0-18.0) g/dL Hct (42-52) % MCV (80-100) fL MCH (25-34) pg MCHC (32-36) g/dL RDW Std Deviation (36.4-46.3) fL RDW Coeff of Shaun (11.5-14.5) % Plt Count (130-400) K/uL MPV (7.4-10.4) fL PT 10.8 (9.0-12.0) Seconds INR 1.1 (0.9-1.1) Sodium 136 (136-145) mmol/L Potassium 3.7 (3.5-5.1) mmol/L Chloride 105 (98-107) mmol/L Carbon Dioxide 25 (21-32) mmol/L Anion Gap 6.0 (3-11) BUN 12 (7-18) mg/dl Creatinine 0.92 (0.6-1.4) mg/dl Est Cr Clr Drug Dosing 98.1 ml/min Est GFR ( Amer) 104.4 ml/min Est GFR (Non-Af Amer) 90.1 ml/min BUN/Creatinine Ratio 13.2 (10-20) Glucose 107 H (70-99) mg/dl Calcium 9.0 (8.5-10.1) mg/dl Total Bilirubin 12.3 H (0.2-1) mg/dl AST 85 H (15-37) U/L ALT 151 H (12-78) U/L Alkaline Phosphatase 299 H (45-117) U/L Total Protein 6.8 (6.4-8.2) gm/dl Albumin 2.9 L (3.4-5.0) gm/dl Globulin 3.9 (2.5-4.0) gm/dl Albumin/Globulin Ratio 0.7 L (0.9-2) Lipase 74 (73-393) U/L 07/29/20 Range/Units 06:11 WBC 6.75 (4.8-10.8) K/uL RBC 4.46 L (4.7-6.1) M/uL Hgb 13.6 L (14.0-18.0) g/dL Hct 39.6 L (42-52) % MCV 88.8 (80-100) fL MCH 30.5 (25-34) pg MCHC 34.3 (32-36) g/dL RDW Std Deviation 50.8 H (36.4-46.3) fL RDW Coeff of Shaun 15.7 H (11.5-14.5) % Plt Count 265 (130-400) K/uL MPV 9.9 (7.4-10.4) fL PT (9.0-12.0) Seconds INR (0.9-1.1) Sodium (136-145) mmol/L Potassium (3.5-5.1) mmol/L Chloride (98-107) mmol/L Carbon Dioxide (21-32) mmol/L Anion Gap (3-11) BUN (7-18) mg/dl Creatinine (0.6-1.4) mg/dl Est Cr Clr Drug Dosing ml/min Est GFR ( Amer) ml/min Est GFR (Non-Af Amer) ml/min BUN/Creatinine Ratio (10-20) Glucose (70-99) mg/dl Calcium (8.5-10.1) mg/dl Total Bilirubin (0.2-1) mg/dl AST (15-37) U/L ALT (12-78) U/L Alkaline Phosphatase (45-117) U/L Total Protein (6.4-8.2) gm/dl Albumin (3.4-5.0) gm/dl Globulin (2.5-4.0) gm/dl Albumin/Globulin Ratio (0.9-2) Lipase (73-393) U/L
--- NOTE | 2020-07-29 14:49 | Magnetic Resonance Report ---
MRCP CLINICAL HISTORY: Elevated hepatic transaminases. COMPARISON STUDY: Abdominal CT dated 07/27/2020. TECHNIQUE: Abdominal MRCP is performed utilizing various T2-weighted sequences in the axial and coron al planes. 3-D reformats are created and assessed. IV contrast was not administered for this examinat ion. FINDINGS: The gallbladder is contracted and not well evaluated. No definite gallstones are identified. Calcific ations in the fundal region seen by CT are not apparent by MRI. There is no intra or extrahepatic jagdeep iary ductal dilatation. The common bile duct measures up to 3 mm in diameter. There are no intralumin al filling defects to suggest choledocholithiasis. Pancreas divisum is incidentally noted. The pancre atic duct is normal in caliber. The unenhanced liver, spleen, adrenal glands, and pancreas are grossly normal. The kidneys are normal in size and without hydronephrosis. A 5 cm left upper pole renal cyst is unchanged. Additional subce ntimeter renal cysts are noted. There is no abdominal ascites. The abdominal aorta is normal in calib er. Prominent upper abdominal nodes are similar to previous. A portacaval node measures up to 14 mm i n short axis. The bony structures appear intact as visualized. There is no pleural effusion. The hear t is enlarged and without pericardial effusion. IMPRESSION: 1. The gallbladder is contracted and not well assessed. No definite gallstones are identified. 2. Pancreas divisum is incidentally noted. 3. Otherwise normal MRCP. Dictated: 07/29/2020 2:05 PM Transcribed: 07/29/2020 2:25 PM Sima [id number] Electronically signed by: Narinder Stiles M.D. 07/29/2020 2:48 PM
--- NOTE | 2020-07-29 17:46 | Hospitalist Progress Note ---
Date of Service July 29, 2020 Assessment & Plan (1) Diarrhea: Present on admission with recurrent episode of diarrhea Possible related to antibiotic doxycycline CT abd/pelvis mild fat stranding of the mesentery might represent panniculitis.Cholelithiasis and contracted gallbladder, above-mentioned findings might be seen in chronic cholecystitis. Stool for Cdiff and parasite are negative Elevated liver enzyme that trending down Diarrhea improved significantly Diet advance as tolerated Resolved Transaminitis Elevated Liver enzymes trending down with AST 85, ALT 151 and Alk 299 Lyme titer negative MRCP showed no acute finding. Continue monior Liver enzymes Abnormal UA Urine cx no growth Asymptomatic Abx discontinued Tobacco abuse Counseling on smoking cessation Alcohol abuse Counseling on alcohol cessation Will monitor closely for alcohol cessation DVT px on Lovenox Code status Ful code Admission and Anticipated Discharge Date Admission Date: July 27, 2020 Subjective Patient was seen and examined for follow-up of diarrhea and Liver enzymes Lying in bed no distress with girlfriend at bedside Patient said that he fell better today He said that his stool today was greenish Denies any chest pain, palpitation, dizziness, shortness of breath. Review of Systems Review of Systems: All systems reviewed & are unremarkable except as noted in Subjective Physical Exam Physical Exam: General- No acute distress Head- atraumatic Eyes- PERRL, EOMI, ENT- oropharynx clear Neck- supple, no JVD Lungs- clear to auscultation Heart- regular rhythm; no murmur Abdomen- normal bowel sounds, soft, nontender Extremities- no calf tenderness Neuro- alert, oriented x 3; PERRL, EOMI; no facial palsy; no dysarthria Skin- warm & dry Results & Data Results & Data ([facility]) Vital Signs (Past 12 Hours) Vital Signs Temp Pulse Pulse Pulse Resp BP Pulse Ox 07/29/20 15:06 73 07/29/20 15:02 36.4 C L 70 18 147/84 H 97 07/29/20 11:02 36.7 C 62 18 150/90 H 94 07/29/20 07:44 59 L 07/29/20 06:57 36.7 C 63 18 138/84 95 (1) Diarrhea Diarrhea type: unspecified type Qualified Code(s): R19.7 - Diarrhea, unspecified
[2020-07-29] MEDS: ACETAMINOPHEN 325 MG TAB PO PRN (20:21)
[2020-07-29] MEDS ORDERED: diphenhydrAMINE Capsule 25 MG CAP PO PRN (20:25)
[2020-07-29] MEDS: ZOLPIDEM TARTRATE 5 MG TAB PO PRN (22:20)
[2020-07-30] MEDS: ACETAMINOPHEN 325 MG TAB PO PRN (06:19)
[2020-07-30 08:03] LABS: Albumin Globulin Ratio 0.7 (0.9-2); Albumin Level 3.2 gm/dl (3.4-5.0); BUN Creatinine Ratio 16.1 (10-20); Bilirubin,Total 13.4 mg/dl (0.2-1); Calcium 9.3 mg/dl (8.5-10.1); Creatinine Clr Calc Pharmacy 91.5 ml/min; Est GFR (African American) 96.7 ml/min; Est GFR (Non-African American) 83.5 ml/min; Globulin 4.4 gm/dl (2.5-4.0); Potassium 3.9 mmol/L (3.5-5.1); Total Protein 7.6 gm/dl (6.4-8.2)
[2020-07-30] MEDS: THIAMINE HCL 100 MG TAB PO SCH (08:15)
[2020-07-30] MEDS: FOLIC ACID 1 MG TAB PO SCH (08:15)
[2020-07-30] MEDS: lisinopril 10 MG TAB PO SCH (08:15)
[2020-07-30] MEDS: MULTIVITAMIN TAB PO SCH (08:16)
[2020-07-30] MEDS: ENOXAPARIN INJ 40 MG/0.4 ML SYR SQ SCH (08:16)
[2020-07-30] MEDS: PANTOprazole 40 MG TAB PO SCH (08:16)
--- NOTE | 2020-07-30 09:34 | Gastroenterology Progress Note ---
Date of Service July 30, 2020 Assessment & Plan (1) Elevated bilirubin: 60 year old male w/ cholestasis, CT and MR reviewed without choledocholithiasis, recent course of PO Augmentin, concern for DILI No GI contraindication to diet No GI contraindication to discharge OP [facility] labs Wednesday Labs twice a week Appt with Dr. Fox within two weeks Consider EUS/liver pending LFTs trend Thank you for allowing us to participate in the care of this patient. Please call with any acute changes, questions or concerns. Please see addendum below with additional recommendation from my supervising physician. Admission and Anticipated Discharge Date Admission Date: July 27, 2020 Supervising Physician Co-Signing Physician Notes attg addL I interviewed and examined pt, reviewed chat and labs. Pt reports two loose bowel movements but is otherwise feeling well. On exam, heis jaundiced, but comfrotable. Abd NT. No tremor. Labs show mildly rising AP and Bili. Presumed Augmentin induced cholestatic liver injury.Cont follow LFT's as outpt as outlined above. Subjective Offer no complaints Denies abd pain No nausea, vomiting No GERD. MRCP: No definite gallstones are identified. There is no intra or extrahepatic biliary ductal dilatation. The common bile duct measures up to 3 mm in diameter. There are no intraluminal filling defects to suggest choledocholithiasis. Pancreas divisum is incidentally noted. The pancreatic duct is normal in caliber. Review of Systems Review of Systems: All systems reviewed & are unremarkable except as noted in HPI & below Physical Exam Constitutional: WD/WN, vitals as above no acute distress and not ill appearing Neck: trachea midline, no thyromegaly Respiratory: normal respiratory effort, lungs clear to auscultation Cardiovascular: RRR, no murmur, no edema Gastrointestinal (Abdomen): normal bowel sounds, soft, nontender, no hepatosplenomegaly Skin: + jaundice Results & Data ([facility]) Vital Signs (Past 12 Hours) Vital Signs Temp Pulse Pulse Pulse Resp BP Pulse Ox 07/30/20 07:42 36.8 C 64 18 135/78 95 07/30/20 03:25 37.1 C 65 16 99/59 L 96 07/30/20 00:44 66 07/29/20 23:52 36.9 C 59 L 18 126/60 96 Laboratory Results 07/30/20 07/29/20 07/29/20 Range/Units 07:00 10:33 06:11 PT 10.8 (9.0-12.0) Seconds INR 1.1 (0.9-1.1) Sodium 135 L (136-145) mmol/L Potassium 3.9 (3.5-5.1) mmol/L Chloride 106 (98-107) mmol/L Carbon Dioxide 23 (21-32) mmol/L Anion Gap 7.0 (3-11) BUN 16 (7-18) mg/dl Creatinine 0.98 (0.6-1.4) mg/dl Est Cr Clr Drug Dosing 91.5 ml/min Est GFR ( Amer) 96.7 ml/min Est GFR (Non-Af Amer) 83.5 ml/min BUN/Creatinine Ratio 16.1 (10-20) Glucose 105 H (70-99) mg/dl Calcium 9.3 (8.5-10.1) mg/dl Total Bilirubin 13.4 H (0.2-1) mg/dl AST 86 H (15-37) U/L ALT 147 H (12-78) U/L Alkaline Phosphatase 355 H (45-117) U/L Total Protein 7.6 (6.4-8.2) gm/dl Albumin 3.2 L (3.4-5.0) gm/dl Globulin 4.4 H (2.5-4.0) gm/dl Albumin/Globulin Ratio 0.7 L (0.9-2) Lipase 74 (73-393) U/L
--- NOTE | 2020-07-30 15:55 | Hospitalist Progress Note ---
Date of Service July 30, 2020 Assessment & Plan (1) Diarrhea: Present on admission with recurrent episode of diarrhea Possible related to antibiotic doxycycline CT abd/pelvis mild fat stranding of the mesentery might represent panniculitis.Cholelithiasis and contracted gallbladder, above-mentioned findings might be seen in chronic cholecystitis. Stool for Cdiff and parasite are negative Elevated liver enzyme that trending down Diarrhea improved significantly Diet advance as tolerated Resolved Transaminitis Mostly related to abx with Augmentin Elevated Liver enzymes trending down with AST 85, ALT 151 and Alk 299 Lyme titer negative MRCP showed no acute finding. No GI contraindication to diet Case discussed with GI Dr. Fox that plan to see the patient in the clinic within 2 weeks Lab order to check liver enzyme twice a week (GI will follow the lab) Consider outpatient EUS/liver pending LFTs trend Okay from GI standpoint to discharge home today and will follow the patient closely No GI contraindication to discharge Abnormal UA Urine cx no growth Asymptomatic Abx discontinued Tobacco abuse Counseling on smoking cessation Alcohol abuse Counseling on alcohol cessation Will monitor closely for alcohol cessation DVT px on Lovenox Code status Ful code Disposition Will discharge home today Admission and Anticipated Discharge Date Admission Date: July 27, 2020 Subjective Pt was seen and and examined for follow-up of elevated liver enzymes Sitting in bed with no distress. He has been walking in the hallway with no d iscomfort Denies any chest pain, palpitation, dizziness, shortness of breath, nausea or vomiting. Review of Systems Review of Systems: All systems reviewed & are unremarkable except as noted in Subjective Physical Exam Physical Exam: General- No acute distress Head- atraumatic Eyes- PERRL, EOMI, ENT- oropharynx clear Neck- supple, no JVD Lungs- clear to auscultation Heart- regular rhythm; no murmur Abdomen- normal bowel sounds, soft, nontender Extremities- no calf tenderness Neuro- alert, oriented x 3; PERRL, EOMI; no facial palsy; no dysarthria Skin- warm & dry Results & Data Results & Data ([facility]) Vital Signs (Past 12 Hours) Vital Signs Temp Pulse Pulse Resp BP Pulse Ox 07/30/20 15:30 69 07/30/20 14:59 37.0 C 63 20 126/68 97 07/30/20 11:49 36.7 C 62 18 151/91 H 97 07/30/20 09:35 68 07/30/20 07:42 36.8 C 64 18 135/78 95 (1) Diarrhea Diarrhea type: unspecified type Qualified Code(s): R19.7 - Diarrhea, unspecified
--- NOTE | 2020-08-08 10:12 | Discharge Summary ---
Date of Service July 30, 2020 Admission HPI Per Admitting Provider History obtained from patient and records. Medical history significant for hypertension, prediabetes, history of pancreatitis as per records, ongoing alcohol/tobacco abuse. 2 weeks ago, patient complained to PCP of sinus infection. Symptoms improved after Augmentin course. Last week, patient noted chest pain with fever and headache. No no cough symptoms. Patient seen at the ER. No pulmonary embolism on CT chest. No LFTs/abdominal imaging done. Patient prescribed doxycycline for possible bronchitis. Patient felt worse 1 day after taking doxycycline. Achy abdominal pain with dark urine. Last alcohol intake at this time secondary to illness as per patient. Lyme screen requested by PCP was negative. Achy abdominal pain later followed by watery diarrhea and rectal pain. Fever, chills, dysuria symptoms. Consumption of maximum of 4 tabs of Tylenol 500 mg daily as per patient. Patient denies chest pain, S OB. Patient stopped Doxycycline. Patient consulted ER for worsening symptoms. Medical History as above Surgical History : Appendectomy Family History : Breast cancer, heart disease, hypertension Personal/Social history : 2 cigarettes a day, alcohol intake not daily but can be heavy from time to time, scheduling work for local [employer] Admission Exam Per Admitting Provider GENERAL: Comfortable, pleasant, obese, no respiratory distress SKIN: Normal color, warm HEENT: [place] palpebral conjunctivae, no ptosis, dry buccal mucosa NECK : Supple, short neck, no tenderness CHEST : CTA, no tenderness HEART : RRR, no obvious murmurs ABDOMEN: Some distention, hypogastric tenderness EXTREMITIES : No LE swelling/tenderness, no other conspicuous deformities noted NEUROLOGIC : Coherent, no facial asymmetry, no other gross focality Principal Diagnosis Transaminitis Diarrhea Tobacco abuse Alcohol abuse Discharge Exam General- No acute distress Head- atraumatic Eyes- PERRL, EOMI, ENT- oropharynx clear Neck- supple, no JVD Lungs- clear to auscultation Heart- regular rhythm; no murmur Abdomen- normal bowel sounds, soft, nontender Extremities- no calf tenderness Neuro- alert, oriented x 3; PERRL, EOMI; no facial palsy; no dysarthria Skin- warm & dry Discharge Data Allergies Allergy/AdvReac Type Severity Reaction Status Date / Time tramadol AdvReac Mild RAPID HEART Verified 12/24/13 06:51 Consultations 07/27/20 06:06 ED Decision to Admit Stat 07/29/20 09:39 Consult Gastroenterology Routine Ordered Studies 07/27/20 06:52 CT abd pelvis IV con only Urgent 07/29/20 09:38 MR MRCP Routine MRCP CLINICAL HISTORY: Elevated hepatic transaminases. COMPARISON STUDY: Abdominal CT dated 07/27/2020. TECHNIQUE: Abdominal MRCP is performed utilizing various T2-weighted sequences in the axial and coronal planes. 3-D reformats are created and assessed. IV contrast was not administered for this examination. FINDINGS: The gallbladder is contracted and not well evaluated. No definite gallstones are identified. Calcifications in the fundal region seen by CT are not apparent by MRI. There is no intra or extrahepatic biliary ductal dilatation. The common bile duct measures up to 3 mm in diameter. There are no intraluminal filling defects to suggest choledocholithiasis. Pancreas divisum is incidentally noted. The pancreatic duct is normal in caliber. The unenhanced liver, spleen, adrenal glands, and pancreas are grossly normal. The kidneys are normal in size and without hydronephrosis. A 5 cm left upper pole renal cyst is unchanged. Additional subcentimeter renal cysts are noted. There is no abdominal ascites. The abdominal aorta is normal in caliber. Prominent upper abdominal nodes are similar to previous. A portacaval node measures up to 14 mm in short axis. The bony structures appear intact as visualized. There is no pleural effusion. The heart is enlarged and without pericardial effusion. IMPRESSION: 1. The gallbladder is contracted and not well assessed. No definite gallstones are identified. 2. Pancreas divisum is incidentally noted. 3. Otherwise normal MRCP. Dictated: 07/29/2020 2:05 PM Transcribed: 07/29/2020 2:25 PM [facility] [id number] Electronically signed by: Narinder Stiles M.D. 07/29/2020 2:48 PM Dictated: 07/29/20 1405Transcribed: 07/29/[address] abd pelvis IV con only CLINICAL HISTORY: abd pain COMPARISON STUDY: December 19, 2008 TECHNIQUE: A dose lowering technique was utilized adhering to the principles of ALARA. CT DOSE: 780.57 mGy.cm FINDINGS: Lower chest: Minimal atelectasis is seen at dependent portions of bilateral lower lobes. No large infiltrates or consolidative lesions are seen.. Liver: The contrast-enhanced liver is normal in size, contour, and attenuation. There is no intrahepatic biliary ductal dilatation. The hepatic veins and portal veins are patent. Gallbladder: Is contracted with calcifications within its distal aspect. No definite inflammatory changes seen within gallbladder fossa. Spleen: Normal in size and attenuation. Pancreas: Unremarkable. Adrenal glands: Unremarkable. Kidneys: There is symmetric renal cortical enhancement. The kidneys are normal in size without hydronephrosis.Interval enlargement of previously seen cyst within superior aspect of the left kidney now measuring 4.3 cm on axial image. Pelvic viscera: The bladder, and pelvic viscera are unremarkable. Bowel: The small bowel and colon are normal in course and caliber. Appendix is not well seen. No inflammatory changes are seen within right lower quadrant. Peritoneum: There is no intraperitoneal free air or abdominal ascites. There is mild fat stranding within left hemiabdomen surrounding mesenteric root which might represent minimal panniculitis. Adenopathy:: Few small lymph nodes are seen in the retroperitoneal region, measuring less than 1 cm in size and considered nonpathological by CT size criteria. No significant mesenteric lymphadenopathy seen. Slightly prominent lymph node measuring 1.2 cm in short axis is seen anteriorly to the inferior vena cava at the region of the pancreatic head, findings are not significantly changed since prior study in 2009 Vasculature: Abdominal aorta is normal in caliber with scattered calcifications of its wall Skeletal structures: Multilevel degenerative changes of the spine. Grade 1 anterolisthesis of L5 on S1 is seen associated with intervertebral disc space narrowing and subchondral sclerosis. Also spondylolysis is seen at this level. Mild anterolisthesis of L4 on L5. IMPRESSION: 1. Mild fat stranding of the mesentery might represent panniculitis. 2. Cholelithiasis and contracted gallbladder, above-mentioned findings might be seen in chronic cholecystitis. Please correlate with prior history. 3. 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 4. Interval enlargement of left renal cyst. 5. Additional findings as above. ACT 112: Positive. There are findings on this exam that require communication between the performing entity and the patient following Patient Test Result Information Act ([place] Act 112) guidelines. The above report was generated using voice recognition software. It may contain grammatical, syntax or spelling errors. Electronically signed by: Shoshana Mendez DO 07/27/2020 9:38 AM Dictated: 07/27/20922Transcribed: 07/27/20922 XR chest 1V portable CLINICAL HISTORY: weakness COMPARISON STUDY: Chest radiograph and chest CT July 21, 2020. FINDINGS: Lung volumes are normal. Lungs are clear. There is no pneumothorax or pleural effusion. Cardiac size is stable. Mediastinal contours are normal. There is no evidence for pulmonary edema. IMPRESSION: No acute cardiopulmonary findings. ACT 112: Negative or not required by law. Electronically signed by: Mook Henderson M.D. 07/27/2020 12:24 PM Dictated: 07/27/20 1223Transcribed: 07/27/20 1223 Hospital Course (1) Diarrhea: Present on admission with recurrent episode of diarrhea Possible related to antibiotic doxycycline CT abd/pelvis mild fat stranding of the mesentery might represent panniculitis.Cholelithiasis and contracted gallbladder, above-mentioned findings might be seen in chronic cholecystitis. Stool for Cdiff and parasite are negative Elevated liver enzyme that trending down Diarrhea improved significantly Diet advance as tolerated Resolved Transaminitis Mostly related to abx with Augmentin Elevated Liver enzymes trending down with AST 85, ALT 151 and Alk 299 Lyme titer negative MRCP showed no acute finding. No GI contraindication to diet Case discussed with GI Dr. Fox that plan to see the patient in the clinic within 2 weeks Lab order to check liver enzyme twice a week (GI will follow the lab) Consider outpatient EUS/liver pending LFTs trend Okay from GI standpoint to discharge home today and will follow the patient closely No GI contraindication to discharge Abnormal UA Urine cx no growth Asymptomatic Abx discontinued Tobacco abuse Counseling on smoking cessation Alcohol abuse Counseling on alcohol cessation Will monitor closely for alcohol cessation DVT px on Lovenox Code status Ful code Disposition Will discharge home today Total Time Total Time Spent Total Time Spent (In Minutes): 35 minutes Total Time Includes: Examination of the Patient, Discharge Planning, Medication Reconciliation, Communication With Other Providers and Other Discharge Plan Discharge Items Patient Disposition: Home - Self-Care Reason For Visit: COMP UTI, ELEVATED BP Discharge Diagnosis: Transaminitis Diarrhea Tobacco abuse Alcohol abuse Condition on Discharge: Good Activity: Resume your previous activity Non-emergency contact: Primary Care Provider and Ball Racker Call non-emergency contact if: you have any medication questions Follow-up/Referrals: Joseph Ruiz MD [Primary Care Provider] - (Date & Time 08/05/2020 3:00 PM Provider Joseph Ruiz MD Department [facility] ) Diet: Heart Healthy Addtl Attending Provider Instructions: Follow up with your primary care provider dr. Ruiz on 08/05/2020 at3:00 PM at the [facility] Follow up with gastroenterology with Dr. Fox (office will call you for the appointment) Check Liver enzymes twice a week ( Schedule for lab on Wednesday ). (Your provider or gastroenterology will review the result with you Pending Studies at Discharge: No Stand-Alone Forms: [facility] [employer], Smoking Cessation Medications and DC Order Prescriptions: Continued hydrocodone-acetaminophen 5-325 mg tablet 1.5 tab PO DAILY PRN (Reason: Pain) RF: 0 betamethasone dipropionate 0.05 % ointment 1 applic TOPICAL BID PRN (Reason: Skin Irritation) RF: 0 omeprazole 20 mg capsule,delayed release(DR/EC) 20 mg PO DAILY RF: 0 lisinopril-hydrochlorothiazide 10-12.5 mg tablet 0.5 tab PO DAILY RF: 0 Discontinued doxycycline hyclate 100 mg capsule 100 mg PO BID 7 Days Qty: 14 RF: 0 Discharge Orders: Discharge Order (Routine); Ordered 07/30/20 Ordered By: Juan Manuel Parker Admission Data Admit Date/Time: 07/27/20 07:25 Attending Provider: Juan Manuel Parker Admit Provider: Cheyenne Godoy Primary Care Provider: Joseph Ruiz Other Providers: Quang Fox Other Interventions: Discharge Summary Assessment (RN) Last Done: 07/30/20 16:51
== END 2020-07-30 17:31 | disposition home or self-care (01) | DRG 392 ==
LOC: 2S 07:25 → SUATTDRO 07:25 → 2S 08:56 → 2N 07-28 00:16